=== PATIENT | female | born 1990 | race Caucasian/White ===

== ENCOUNTER 2025-01-15 09:15 | Outpatient (AMB) | payer OTHER, SELFPAY ==
--- NOTE | 2025-01-15 08:12 | A.OFFPC_ITS ---
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 Accompanied by: Self / Same As Patient Allergies No Known Allergies Allergy (Verified 01/15/25 09:25) Medication List - Last Reconciled 01/15/25 by Brittany Perdue MD No Known Home Meds Tobacco use date assessed: 01/15/25 Dental Screening Dental Screen Date: 01/15/25 Did you have a dental visit in the last 12 months?: Yes Did you have a dental problem in the last 6 months where you did not have access to dental care?: No Was dental information given to patient?: Patient has dentist HPI HPI Comments History of Present Illness Details The patient is a 34-year-old female presenting to [facility]. Chronic endometritis: Persistent inflammation despite antibiotics, causing delay in fertility treatment. Goes to [facility]. Anxiety disorder: Manages low-level anxiety with minor worrying, history of previous therapy. Potential plantar warts: Suspected plantar warts with described raised hard areas plantar aspect of both feet. Social History: - Family planning difficulties, attempti ng to conceive for two years - Childcare: Has a 2?-year-old son in [facility] Review of Systems - Psychiatric: Reports minor anxiety - Gastrointestinal: no abdominal pain Physical Exam - Gen: NAD - HEENT- EOMI - Chest: CTABL - Card: normal S1, S2 - Abd: SNTND, +BS - Feet- small raised hard areas suspicio us for plantar warts Assessment and Plan 1. Chronic endometritis - Seek second opinion at [facility] or [facility] for reproductive endocrinology 2. Anxiety disorder - Maintain current management, monitor. 3. Potential plantar warts - Refer to podiatry for evaluation. Follow up in May for physical Discussion Notes During the visit, we discussed the persistence of the patient's chronic endometritis, and the patient was advised to consider alternative reproductive centers for a second opinion due to unresolved inflammation despite repeated antibiotic treatments. We also reviewed her anxiety management, which appears to be well-controlled at this time, with no significant interventions necessary. Regarding the patient's foot condition, a possible plantar wart, I referred her to a special class welder for further evaluation. Patient Instructions - Schedule an appointment with a podiatr ist for foot evaluation. - Consult with alternate reproductive he [facility] centers as discussed. - Complete lab tests as planned. - Continue current anxiety management. [facility] Medical History (Updated 01/15/25 @ 11:06 by Brittany Perdue MD) Chronic endometritis Plantar wart of both feet Female fertility problem Routine medical exam Social History Housing: House Patient Tobacco Use Status: Never used Tobacco e-Cigarette/Vaping Use: Never Used Current occupational status: employed Current occupation: Pediatric Occupational Therapist with [employer] Questionnaire AUDIT C Alcohol Use Questionnaire (AUDIT-C) 1. How often do you have a drink containing alcohol?: Monthly or less 2. How many drinks containing alcohol do you have on a typical day when you are drinking?: 1 or 2 3. How often do you have six or more drinks on one occasion?: Never Total Score: 1 Physical exam (Primary Care) Vital Signs: Last Vital Signs Temp 97.3 F 01/15/25 09:22 Pulse 86 01/15/25 09:22 Resp 16 01/15/25 09:22 BP 98/64 01/15/25 09:22 Pulse Ox 97 01/15/25 09:22 Oxygen Delivery Method Room Air 01/15/25 09:22 BMI result Body Mass Index 26.3 Tobacco/Smoking Status: Tobacco use Status Tobacco use date assessed 01/15/25 01/15/25 08:14 Patient Tobacco Use Status Never used Tobacco 01/15/25 09:29 e-Cigarette/Vaping Use Never Used 01/15/25 09:29 Coding Level of Care Code Est Pt Level 4 (59096) Complex EM visit Add On G2211 Diagnoses Female fertility problem N97.9 Plantar wart of both feet B07.0 Chronic endometritis N71.1 Assessment & Plan Assessment & Plan (1) Female fertility problem: Code(s): N97.9 - Female infertility, unspecified Category: Medical (2) Plantar wart of both feet: Code(s): B07.0 - Plantar wart Category: Medical (3) Chronic endometritis: Code(s): N71.1 - Chronic inflammatory disease of uterus Category: Medical Plan - Comprehensive lab testing planned for thyroid, glucose, liver, kidney, blood count, and cholesterol. - Second opinion advised for unresolved endometritis. - Anxiety to be monitored without changes; satisfactory current management. - Podiatry consultation for potential plantar warts. - Follow-up physical exam scheduled for early May. Orders: Orders Comprehensive Met. Panel Today N97.9 - Female infertility, unspecified, Z00.00 - Encounter for general adult medical examination without abnormal findings Complete Blood Count Auto Diff Today N97.9 - Female infertility, unspecified, Z00.00 - Encounter for general adult medical examination without abnormal findings Lipid Panel Today N97.9 - Female infertility, unspecified, Z00.00 - Encounter for general adult medical examination without abnormal findings TSH reflex Free T4 Today N97.9 - Female infertility, unspecified, Z00.00 - Encounter for general adult medical examination without abnormal findings Referrals Podiatry Referral B07.0 - Plantar wart Medications: New vit 30-jfde-idilt-dha 27mg iron- 800 mcg-250 mg ( Multi-DHA (algal oil)) 1 cap PO DAILY 90 caps 3RF
[2025-01-15 09:22] VITALS: BP 98/64; PULSE 86; RESP 16; TEMP 36.3; O2SAT 97; BMI 26.3
== END 2025-01-15 11:01 | disposition home or self-care (01) ==
PROVIDERS: PCP Internal Medicine; Visit Provider Internal Medicine
DX: B07.0 Plantar wart (principal); N97.9 Female infertility, unspecified; N71.1 Chronic inflammatory disease of uterus

== ENCOUNTER 2025-01-15 09:15 | Outpatient (REF) | payer OTHER, SELFPAY ==
[2025-01-15 10:36] LABS: MANUAL DIFF FLAG NO
[2025-01-15 10:47] LABS: Hematocrit 42.5 % (37.0-47.0); Hemoglobin 14.3 g/dl (12.0-16.0); Imm Gran Abs Auto 0.02 X10*3/uL (0.00-0.03); Imm Gran Pct Auto 0.3 % (0.0-0.4); Lymphocytes Absolute Auto 1.6 X10*3/uL (1.2-4.9); Mean Corpuscular HGB Conc 33.6 g/dl (31.0-35.0); Mean Corpuscular Hemoglobin 29.6 pg (27.0-33.0); Mean Corpuscular Volume 88.0 fL (80.0-98.0); NRBC Abs Auto 0.000 X10*3/uL (0.0-0.012); NRBC Pct Auto 0.0 /100WBC (0.0-0.2); Platelet Count 254 X10*3/uL (160-400); Red Blood Count 4.83 X10*6/uL (4.20-5.50); White Blood Count 6.4 X10*3/uL (4.8-10.8)
[2025-01-15 11:37] LABS: Alanine Aminotransferase 19 U/L (0-31); Albumin Level 4.7 g/dL (3.5-5.0); Alkaline Phosphatase 50 U/L (39-117); Anion Gap 10 (12-20); Aspartate Amino Transferase 23 U/L (5-31); Blood Urea Nitrogen 13 mg/dL (9-16); Calcium 9.1 mg/dL (8.4-10.2); Carbon Dioxide 28 mmol/L (22-29); Chloride 106 mmol/L (96-108); Cholesterol 158 mg/dL (<200); Estimated Glomerular Filt Rate > 60; HDL Cholesterol 46 mg/dL (>40); Potassium 4.0 mmol/L (3.3-5.1); Sodium 140 mmol/L (135-145); Total Protein 7.0 g/dL (6.5-8.0); Triglycerides 65 mg/dL (<150)
== END 2025-01-15 09:16 | disposition home or self-care (01) ==
LOC: HO.LAB 09:15
PROVIDERS: PCP Internal Medicine; Visit Provider Internal Medicine
DX: Z00.00 Encounter for general adult medical examination without abnormal findings (principal); N97.9 Female infertility, unspecified; N71.1 Chronic inflammatory disease of uterus; F41.9 Anxiety disorder, unspecified; B07.0 Plantar wart
CPT/HCPCS: 36415; 80053; 80061; 84443; 85025

== ENCOUNTER 2025-02-15 11:29 | Outpatient (AMB) | payer OTHER, SELFPAY ==
--- NOTE | 2025-02-15 11:30 | A.OFFPC_ITS ---
Vital Signs 02/15/25 11:32 Height 5 ft 5 in Weight 157 lb 8 oz BMI 26.2 BP 102/60 Blood Pressure Location Rt brachial Position Sitting Respiration 16 Pulse 94 Pulse Source Pulse Oximeter Temp 97.9 F Temp Source Oral Pulse Oximetry (%) 97 Oxygen Delivery Method Room Air Intake Visit Reasons: cold sx - fever, sore throat, blocked ear, cough Dietary Tech Required: No Accompanied by: Self / Same As Patient Allergies No Known Allergies Allergy (Verified 02/15/25 11:31) Medication List - Last Reconciled 02/15/25 by Brittany Perdue MD aspirin 81 mg PO DAILY letrozole 5 mg PO DAILY vit 04-lbex-dhxqg-dha 27mg iron- 800 mcg-250 mg ( Multi-DHA (algal oil)) 1 cap PO DAILY Tobacco use date assessed: 01/15/25 Dental Screening Dental Screen Date: 01/15/25 Did you have a dental visit in the last 12 months?: Yes Did you have a dental problem in the last 6 months where you did not have access to dental care?: No Was dental information given to patient?: Patient has dentist HPI HPI Comments History of Present Illness Details The patient is a 34 year old femalel presenting with right ear pressure, cough, and fever. The patient reports symptoms including a dry cough, right ear pressure, and an intermittent fever up to 100??F, which began on Saturday after a possible exposure at a daycare on Saturday. The patient has been self-treating with DayQuil and NyQuil. The patient's cough was initially dry but became productive this morning with green-colored phlegm. [facility] Medical History (Updated 02/15/25 @ 17:29 by Brittany Perdue MD) Productive cough ADHD Chronic endometritis Plantar wart of both feet Female fertility problem Routine medical exam Surgical History (Updated 01/15/25 @ 14:19 by Brittany Perdue MD) H/O wisdom tooth extraction History of tonsillectomy Social History Housing: House Patient Tobacco Use Status: Never used Tobacco e-Cigarette/Vaping Use: Never Used Current occupational status: employed Current occupation: Pediatric Occupational Therapist with [employer] Questionnaire PHQ-9 Over the last 2 weeks, how often have you been bothered by any of the following problems? 1. Little interest or pleasure in doing things: not at all 2. Feeling down, depressed, or hopeless: not at all 3. Trouble falling or staying asleep, or sleeping too much: not at all 4. Feeling tired or having little energy: not at all 5. Poor appetite or overeating: not at all 6. Feeling bad about yourself - or that you are a failure or have let yourself or your family down: not at all 7. Trouble concentrating on things, such as reading the newspaper or watching television: not at all 8. Moving or speaking so slowly that other people could have noticed. Or the opposite - being so fidgety or restless that you have been moving around a lot more than usual: not at all 9. Thoughts that you would be better off or of hurting yourself in some way: not at all Total score: 0 Depression Screening Interpretation: Negative Depression Screening Done: Yes 05701 - PHQ-9 Billing: Yes Source: Developed by Drs. Khari Hopkins, Patria Jones, Jun Levine and colleagues, with an educational cristiane from [employer]. AUDIT C Alcohol Use Questionnaire (AUDIT-C) 1. How often do you have a drink containing alcohol?: Monthly or less 2. How many drinks containing alcohol do you have on a typical day when you are drinking?: 1 or 2 3. How often do you have six or more drinks on one occasion?: Never Total Score: 1 Review of Systems Narrative Review of Systems - Constitutional: Reports intermittent fever up to 100??F. - HEENT: Reports pressure in the right ear. - Respiratory: per hpi Physical exam (Primary Care) Vital Signs: Last Vital Signs Temp 97.9 F 02/15/25 11:32 Pulse 94 02/15/25 11:32 Resp 16 02/15/25 11:32 BP 102/60 02/15/25 11:32 Pulse Ox 97 02/15/25 11:32 Oxygen Delivery Method Room Air 02/15/25 11:32 BMI result Body Mass Index 26.2 Tobacco/Smoking Status: Tobacco use Status Tobacco use date assessed 01/15/25 02/15/25 11:37 Patient Tobacco Use Status Never used Tobacco 02/15/25 11:37 e-Cigarette/Vaping Use Never Used 02/15/25 11:37 PHQ-9: PHQ-9 Score PHQ-9: Total score 0 02/15/25 11:37 Depression Screening Interpretation: Negative Narrative Physical Exam - Constitutional: Temperature normal at time of visit. - HEENT: Ears are clear without fluid or erythema. - Pharynx: no erythema, no exudate. - Neck: No cervical lymphadenopathy or tenderness on palpation. - Lungs: Clear to auscultation bilaterally, no wheezing. - Cardiovascular: Regular rate. - Abd: SNTND, +BS Coding Level of Care Code Est Pt Level 3 (41039) Complex visit Add On G2211 Diagnoses Productive cough R05.8 Additional Codes PHQ-9 - 78754 - PHQ-9 Billing: Yes ([id number]) Assessment & Plan Assessment & Plan (1) Productive cough: Code(s): R05.8 - Other specified cough Category: Medical Plan Assessment and Plan 1. Productive cough The patient is a 34-year-old individual presenting with cough, fever, and right ear pressure. While the initial symptoms suggested a viral upper respiratory infection, the new onset of productive cough with green sputum is indicative of a possible superimposed bacterial infection. An azithromycin (Z-brian) will be prescribed. Symptomatic management with Nasacort, Zyrtec, Tylenol, hydration, rest. Return precautions were reviewed. Plan - Azithromycin (Z-Brian) prescribed; patient to take two pills today and then one pill daily for a 5-day course. - Take Azithromycin with food. - Use Nasacort nasal spray twice a day for one week. - Take Zyrtec for sinus symptoms. - Use Tylenol Extra Strength 500 mg for fever suppression. - Advised adequate hydration, nutrition, and rest. - Recommended using a humidifier with warm steam. Discussion Notes I recommended a course of azithromycin (Z-Brian) and confirmed there are no interactions with the patient's current letrozole. I also advised on symptomatic management including Nasacort spray for a week, Zyrtec for sinus symptoms, Tylenol for fever, hydration, rest. Patient Instructions - Take your antibiotic, Azithromycin (Z-Brian), as prescribed: take two pills today, and then one pill each day after that for a 5-day total course. - It is best to take the antibiotic with food. - Use the Nasacort nasal spray twice a day for the next week to help with sinus pressure. - You may also take Zyrtec to help with any sinus or allergy-like symptoms. - Use Tylenol Extra Strength as needed to help lower your fever. - Make sure to get plenty of rest and drink lots of fluids, like water. Medications: New azithromycin For 250 mg dose pack: take 500 mg today (day 1), then 250 mg for 4 days (days 2-5) PO 6 tabs 0RF
[2025-02-15 11:32] VITALS: BP 102/60; PULSE 94; RESP 16; TEMP 36.6; O2SAT 97; BMI 26.2
== END 2025-02-15 11:55 | disposition home or self-care (01) ==
LOC: HO.HMCHD 11:30
PROVIDERS: PCP Internal Medicine; Visit Provider Internal Medicine
DX: R05.8 Other specified cough (principal)

== ENCOUNTER → 2025-02-15 11:29 | Outpatient (BNVA) | payer OTHER, SELFPAY | PROVIDERS: PCP Internal Medicine; Visit Provider Internal Medicine | DX: R05.8 Other specified cough (principal); Z13.31 Encounter for screening for depression | CPT/HCPCS: 96127 ==

== ENCOUNTER 2025-02-17 10:59 | Outpatient (AMB) | payer OTHER, SELFPAY ==
--- NOTE | 2025-02-17 11:08 | MHC.OFFVIS ---
Vital Signs 02/17/25 11:22 Height 5 ft 5 in Weight 157 lb BMI 26.1 Intake Visit Reasons: Plantar wart of both feet Intake Note: Alma Delia is a 34 year old female who presents today as a new patient for an evaluation of her bilateral plantar wart. Patient reports the warts has been there for about 3 months and they are located on the ball of the foot. She has not tried any OTC wart treatment at this time. Patient has no further questions or concerns at this time. Allergies No Known Allergies Allergy (Verified 02/17/25 11:08) HPI Comments Details: The patient is a 34 year old individual with a past medical history as seen below presenting with painful thickened lesions on the ball of the feet plantarly. The patient has experienced foot pain for a couple of months, initially feeling hard spots on the bottom of the feet. Patient states the left foot was reportedly more painful than the right. The patient describes the sensation as feeling like stepping on a stone or pebble. The patient denies any recent trauma, such as stepping on something sharp. Patient denies any purulence or drainage from the sites. She denies any other pedal concerns. [facility] Medical History (Updated 02/20/25 @ 13:12 by Tonia Adler DPM) Pain in both feet Intractable plantar keratosis Other specified epidermal thickening Productive cough ADHD Chronic endometritis Plantar wart of both feet Female fertility problem Routine medical exam Surgical History (Updated 01/15/25 @ 14:19 by Brittany Perdue MD) H/O wisdom tooth extraction History of tonsillectomy Social History Housing: House Patient Tobacco Use Status: Never used Tobacco e-Cigarette/Vaping Use: Never Used Current occupational status: employed Current occupation: Pediatric Occupational Therapist with [employer] Review of Systems Const Details: - Musculoskeletal: Reports intermittent pain on the bottom of both feet for a couple of months, with the left foot being more painful than the right. - Dermatologic/Integumentary: Reports feeling hard spots on the balls of the feet. All systems reviewed & are unremarkable except as noted in HPI and below Physical Exam Vital Signs: BMI result Body Mass Index 26.1 Extrem Other: Bilateral lower extremity focused physical exam: Derm: Hyperkeratotic lesions noted x2 (1 on each foot in the area of submetatarsal 2 bilaterally). Toenails noted to be of normal length and color. No open lesions, abrasions, or wounds noted. Skin supple and turgor within normal limits. No clinical signs of infection noted. No active drainage, purulence, or bleeding noted. Vascular: DP/PT pulses palpable. Capillary refill time less than 3 seconds. Temperature gradient warm to warm. Pedal hair absent. No varicosities noted. Neuro: Protective sensation is grossly intact. MSK: Pain on palpation to the hyperkeratotic lesions. No crepitus or fluctuance noted. Range of motion of the forefoot, hindfoot and ankles within normal limits. No other gross abnormalities noted. Mildly antalgic gait unassisted noted. Office Procedures AMB Debridement/Avulsion Podia Details: Debrided the hyperkeratotic lesions x2 using a 15. Blade without any incidents. 92802-Kfrhtppcgzb of Callus (2-4) Procedure code (CPT) selection complete Results Reviewed Results Reviewed: Laboratory Tests 01/15/25 10:31 WBC 6.4 Random Glucose 95 AST 23 ALT 19 Assessment & Plan Assessment & Plan (1) Other specified epidermal thickening: Code(s): L85.8 - Other specified epidermal thickening Category: Medical (2) Intractable plantar keratosis: Code(s): L84 - Corns and callosities Category: Medical (3) Pain in both feet: Code(s): M79.671 - Pain in right foot; M79.672 - Pain in left foot Category: Medical Plan Patient was informed and verbally consented to the use of an ambient scribe for clinic note documentation during this visit. I explained to the patient that the painful lesions on the feet appeared to be calluses with a central core. I notified the patient that the painful sensation of stepping on a pebble was due to the callus's core. I debrided the calluses on both feet and confirmed with the patient that there was no residual pain upon palpation, indicating the core had been removed. I discussed that calluses tend to recur due to pressure points and advised that regular application of a thick cream like Vaseline and the use of callus cushions could slow their return. The patient was instructed to follow up as needed if the pain or calluses recur. - Performed debridement of bilateral plantar calluses on the right and left foot. - Recommended application of a thick cream, such as Vaseline or Aveeno, to the affected areas twice daily to slow the recurrence of the calluses. - Advised that callus cushions can be used to offload pressure from the area. RTC PRN. Orders: Orders AMB Debridement/Avulsion Podiatry 02/17/25 L84 - Corns and callosities, L85.8 - Other specified epidermal thickening, M79.671 - Pain in right foot, M79.672 - Pain in left foot Coding Level of Care Code New Pt Level 3 (06424) Diagnoses Other specified epidermal thickening L85.8 Intractable plantar keratosis L84 Pain in both feet M79.671; M79.672 CPT Codes Skin Debridement - CPT: 29747-Noqecfctqky of Callus (2-4) ([id number]) Time Spent (min) 35 Comment 5 mins for procedure
[2025-02-17 11:22] VITALS: BMI 26.1
== END 2025-02-17 11:26 | disposition home or self-care (01) ==
LOC: HO.HPODS 10:59
PROVIDERS: PCP Internal Medicine; Visit Provider Student in an Organized Health Care Education/Training Program
DX: L85.8 Other specified epidermal thickening (principal); L84 Corns and callosities; M79.671 Pain in right foot; M79.672 Pain in left foot
CPT/HCPCS: 11056; 99203